=== PATIENT | female | born 1940 | race Caucasian/White ===

== ENCOUNTER 2020-02-21 14:52 | Outpatient (CLI) | payer MEDICARE, SELFPAY ==
--- NOTE | ~2020-02-21 | US_ITS ---
EXAMINATION: US art doppler w press LE BI DATE: 02/21/2020 15:44 INDICATION: Peripheral vascular disease, unspecified. TECHNIQUE: Segmental pressures and plethysmographic and Doppler waveforms of the brachial and lower e xtremity arteries were obtained. COMPARISON: CT abdomen and pelvis 04/18/2018 FINDINGS: Right and left brachial artery pressures of 145 mm Hg and 146 mm Hg, respectively, are concordant (no rmal difference <= 30 mmHg). The right high-thigh pressure index is 0.74 (normal > 1.2). The right ankle-brachial index (ELVA) is 0 .54 (normal >= 0.9-1.0). The right great toe-brachial index (TBI) is 0.48 (normal >= 0.65). The right lower extremity segmental pressure gradients are normal (normal gradients <= 20-30 mmHg between cullen cent levels on the same leg or the same levels on the two legs). Arterial Doppler waveforms are bipha sic from common femoral artery to the ankle. The left high-thigh pressure index is 0.99. The left ELVA is 0.73. The left TBI is 0.51. The left lowe r extremity segmental pressure gradients are normal. Arterial Doppler waveforms are biphasic from com mon femoral artery to the ankle. IMPRESSION: 1. Moderately decreased ABIs, consistent with arterial occlusive disease, likely predominantly in the aortoiliofemoral distributions. Reviewed, dictated and finalized at location A. IMPRESSION: 1. Moderately decreased ABIs, consistent with arterial occlusive disease, likel y predominantly in the aortoiliofemoral distributions.
== END 2020-02-21 14:53 | disposition home or self-care (01) ==
PROVIDERS: PCP Internal Medicine; Visit Provider Internal Medicine
DX: I73.9 Peripheral vascular disease, unspecified (principal)
CPT/HCPCS: 93923

== ENCOUNTER 2020-02-28 10:11 | Outpatient (CLI) | payer MEDICARE, SELFPAY ==
--- NOTE | ~2020-02-28 | CT_ITS ---
EXAMINATION: CTA abd aorta runoff DATE: 02/28/2020 11:15 INDICATION: Peripheral vascular disease, unspecified. TECHNIQUE: Computed tomographic angiography (CTA) of the abdominal, pelvis, and both lower extremitie s was performed with 150 mL Omnipaque-350 intravenous contrast. Automated exposure control and iterat erik reconstruction technique were employed. The dose-length product was 614.91 mGy-cm. Maximum intens ity projection 3D-reconstructions of the arteries were created by the technologist on a separate work station. COMPARISON: Arterial Doppler and segmental pressures 02/21/2020 FINDINGS: ABDOMINAL AORTA AND ITS BRANCHES: There is atherosclerosis of the abdominal aorta without significant stenosis. There is severe stenosi s of celiac axis and mild stenosis of superior mesenteric artery. There is mild stenosis of right selma al artery. There is severe stenosis of left renal artery origin. There is no significant stenosis of inferior mesenteric artery. PELVIC VASCULATURE: There is severe stenosis of right common iliac artery. There is mild stenosis of right external iliac artery and internal iliac artery. There is mild stenosis of left common iliac artery and external il iac artery and internal iliac artery. RIGHT LOWER EXTREMITY VASCULATURE: There is moderate stenosis of right common femoral artery. There is severe stenosis of proximal right profunda femoris and proximal superficial femoral artery. There is mild stenosis of distal right sup erficial femoral artery, popliteal artery, tibioperoneal trunk, peroneal artery, and anterior tibial artery. There is total occlusion of distal right posterior tibial artery. LEFT LOWER EXTREMITY VASCULATURE: There is mild stenosis of common femoral artery and origin of profunda femoris. There is mild stenosi s of the superficial femoral artery. There is moderate stenosis of left above-knee popliteal artery. There is mild stenosis of the tibioperoneal trunk, peroneal artery, and anterior tibial artery. There is total occlusion of distal left posterior tibial artery. ADDITIONAL FINDINGS: There is mild emphysema. There is mild atelectasis bilaterally. No pleural effusion. The liver is nor mal. There are gallstones in the gallbladder, which is normal in size. Calcifications in the spleen a re consistent with old granulomatous disease. Calcifications in the pancreas are consistent with chief accounting officer mi pancreatitis. Right adrenal gland is normal. There is a 1.3 cm mass in left adrenal gland measuri ng soft tissue attenuation, likely an adenoma in the absence of known malignancy. There is mild atrop hy of right kidney and moderate atrophy of left kidney. There are cysts in right kidney measuring up to 1.5 cm. There are no dilated loops of bowel. There are changes of right hemicolectomy. There are n o pathologically enlarged lymph nodes. There is no free intraperitoneal fluid. There are chronic comp ression fractures of lower thoracic spine. IMPRESSION: 1. 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 2. Severe stenosis of left renal artery. 3. Severe stenosis of right common iliac artery. 4. Moderate stenosis of right common femoral artery. 5. Severe stenosis of proximal right superficial femoral artery. 6. Total occlusion of distal right posterior tibial artery. Two-vessel runoff on the right. 7. Moderate stenosis of left above-knee popliteal artery. 8. Total occlusion of distal left posterior tibial artery. Two-vessel runoff on the left. Reviewed, dictated and finalized at location A. IMPRESSION: 1. Severe stenosis of celiac axis and mild stenosis of superior mesenteric art tessie. 2. Severe stenosis of left renal artery. 3. Severe stenosis of right common iliac artery. 4. Mo
[2020-02-28 10:37] LABS: Estimated Glomerular Filt Rate 43
== END 2020-02-28 10:12 | disposition home or self-care (01) ==
PROVIDERS: PCP Internal Medicine; Visit Provider Internal Medicine
DX: I73.9 Peripheral vascular disease, unspecified (principal)
CPT/HCPCS: 36415; 75635; Q9967

== ENCOUNTER 2020-05-22 18:56 | Emergency (ER) | payer MEDICARE, SELFPAY ==
[2020-05-22 19:05] VITALS: BP 140/82; PULSE 81; RESP 16; TEMP 36.5; O2SAT 98
--- NOTE | 2020-05-22 19:06 | ED.SKABFB ---
HPI - Skin/Abscess/Foreign Bdy General Chief complaint: Skin/Abscess/Foreign Body Stated complaint: Abrasion on right leg Time Seen by Provider: 05/22/20 19:06 Source: patient and RN notes reviewed Mode of arrival: ambulatory Limitations: no limitations History of Present Illness HPI narrative: 80-year-old female presents with concern for a wound she sustained yesterday that continues to bleed. She reports she is on blood thinners. Reports she bumped her leg and opened up an old scab on the front of her right lower leg. Reports she applied pressure for 30 minutes on at least 3 different occasions. MD complaint: other (Wound) Related Data Home Medications Medication Instructions Recorded Confirmed multivitamin 1 tablet PO DAILY 06/24/19 05/22/20 cholecalciferol (vitamin D3) 125 125 mcg PO DAILY 02/19/20 05/22/20 mcg (5,000 unit) capsule aspirin 81 mg tablet,delayed 81 mg PO DAILY 05/13/20 05/22/20 release clopidogrel 75 mg tablet 75 mg PO DAILY 05/13/20 05/22/20 gabapentin 100 mg PO HS 05/22/20 05/22/20 polysaccharide iron complex 150 mg PO DAILY 05/22/20 05/22/20 [Ferrex 150] Allergies Allergy/AdvReac Type Severity Reaction Status Date / Time No Known Allergies Allergy Unknown Verified 05/22/20 19:00 Review of Systems Review of Systems: Narrative: CONSTITUTIONAL: Denies malaise, chills, sweats, or fever. CARDIOVASCULAR: Denies chest pain, palpitations, or edema. RESPIRATORY: Denies cough or dyspnea. SKIN: Reports a skin tear on her right anterior leg with persistent bleeding MUSCULOSKELETAL: Denies musculoskeletal pain All systems reviewed & are unremarkable except as noted in HPI and below PMFSH Family History Family History Mother Family history of Alzheimer's disease Father Family history of Alzheimer's disease Patient's father is Sibling Family history of lung cancer Other Diabetes mellitus Family history of arthritis Social History Social History Smoking packs per day: 0.25 Smoking cigarettes per day: 5.0 Years smoked: 60 Smoking pack-years: 15.00 Smoking status: Current every day smoker Tobacco type: cigarettes Second hand tobacco smoke exposure: No Alcohol intake: current Drinks per week: 12 Substance use: never Comments At time of signature, agree with nursing past medical, surgical, social and family history. There is no relevant family history pertinent to the presenting complaint Exam Narrative: Exam Narrative: GENERAL: Well-appearing, well-nourished, and in no acute distress. HEAD: Normocephalic EYES: PERRLA, conjunctivae clear ENT: Mucous membranes moist. NECK: Supple. CHEST: No respiratory distress. Speaks in full sentences. HEART: Regular rate and rhythm. Normal right lower peripheral pulse. EXTREMITIES: Right lower leg cast normal range of motion, no edema, grossly normal strength and sensation. SKIN: Warm, dry, no rash. 4 cm x 2 cm skin tear noted to the right anterior leg with active bleeding NEURO: Alert and oriented x3. PSYCH: Normal mood and affect Course Course Emergency Course: Patient is aware of diagnosis, understands and agrees to treatment plan. Anticipatory guidance given. Patient agrees to follow-up as directed and is aware of reasons to seek care at the emergency department. Portions of this record may have been created with voice recognition software Vital Signs Vital signs: Vital Signs Temperature 97.7 F 05/22/20 19:05 Pulse Rate 81 05/22/20 19:05 Respiratory Rate 16 05/22/20 19:05 Blood Pressure 140/82 05/22/20 19:05 Pulse Oximetry 98 05/22/20 19:05 Temperature 97.7 F 05/22/20 19:05 Pulse Rate 81 05/22/20 19:05 Respiratory Rate 16 05/22/20 19:05 Blood Pressure 140/82 05/22/20 19:05 Pulse Oximetry 98 05/22/20 19:05 Reviewed. Procedures Other Pr
[2020-05-22] MEDS: CELLULOSE OXIDIZED 2 x 14 INCH 1 PKT XX (19:18)
== END 2020-05-22 19:33 | disposition home or self-care (01) ==
PROVIDERS: Emergency Provider Nurse Practitioner; PCP Internal Medicine
DX: S81.811A Laceration without foreign body, right lower leg, initial encounter (principal); X58.XXXA Exposure to other specified factors, initial encounter; F17.210 Nicotine dependence, cigarettes, uncomplicated; Z79.01 Long term (current) use of anticoagulants; E78.00 Pure hypercholesterolemia, unspecified; I10 Essential (primary) hypertension
CPT/HCPCS: 12002; 99212; G0463

== ENCOUNTER 2020-06-24 18:30 | Emergency (ER) | payer MEDICARE, SELFPAY ==
[2020-06-24 20:00] VITALS: BP 134/71; PULSE 97; RESP 18; TEMP 36.4; O2SAT 97
== END 2020-06-24 23:13 | disposition left against medical advice (07) ==
LOC: ANHED 22:33
PROVIDERS: PCP Internal Medicine
DX: S39.92XA Unspecified injury of lower back, initial encounter (principal)
CPT/HCPCS: 99199